=== PATIENT | female | born 1950 | race Caucasian/White ===

== ENCOUNTER → 2018-04-25 | Outpatient (CLI) | payer MEDICARE | END | disposition home or self-care (01) | LOC: RAD 08:25 | PROVIDERS: ATTEND Nurse Practitioner Primary Care | DX: K76.0 Fatty (change of) liver, not elsewhere classified (principal); R10.11 Right upper quadrant pain | CPT/HCPCS: 76700 ==

== ENCOUNTER → 2018-05-09 | Outpatient (CLI) | payer MEDICARE ==
[~2018-05-09] MED LIST: SINCALIDE (KINEVAC) 5 MCG ONE
== END | disposition home or self-care (01) ==
LOC: PETCFH 07:23
PROVIDERS: ATTEND Nurse Practitioner Primary Care
DX: R10.9 Unspecified abdominal pain (principal)
CPT/HCPCS: 78226; A9537; J2805

== ENCOUNTER 2019-10-25 08:29 | Outpatient (CLI) | payer MEDICARE ==
[~2019-10-25 08:29] MED LIST changes: +ASPI-496 PO; +ATOR20TA37 PO; +LISI-167 PO; +METF500T17 PO; -SINCALIDE (KINEVAC) 5 MCG ONE
== END 2019-10-25 23:59 | disposition home or self-care (01) ==
LOC: CARD 08:29
PROVIDERS: ATTEND Nurse Practitioner Primary Care
DX: G62.89 Other specified polyneuropathies (principal)
CPT/HCPCS: 95886; 95909